=== PATIENT | female | born 1980 | race Caucasian/White ===

== ENCOUNTER 2017-02-17 21:22 | Emergency (ER) | payer OTHER ==
[~2017-02-17] VITALS: Ht 162.6 cm; Wt 77.0 kg
[~2017-02-17 21:22] MED LIST: PERCOCET 5/325M1 TAB PO
[2017-02-17] MEDS ORDERED: PERCOCET 5/325M1 TAB PO (23:49)
[2017-02-18 00:15] VITALS: BP 132/76
== END 2017-02-18 00:20 | disposition home or self-care (01) | DRG 552 ==
LOC: ED 21:22
DX: S16.1XXA Strain of muscle, fascia and tendon at neck level, initial encounter (principal); S30.1XXA Contusion of abdominal wall, initial encounter; V49.9XXA Car occupant (driver) (passenger) injured in unspecified traffic accident, initial encounter; Y92.488 Other paved roadways as the place of occurrence of the external cause